=== PATIENT | male | born 1985 | race Caucasian/White ===

== ENCOUNTER 2016-05-02 13:02 | Emergency (ER) | payer MEDICAID ==
[~2016-05-02] VITALS: Ht 177.8 cm; Wt 85.0 kg
[~2016-05-02 13:02] MED LIST: PRED20 PO
[2016-05-02 13:04] VITALS: BP 127/76; PULSE 78; RESP 18; TEMP 98.2; O2SAT 99
[2016-05-02] MEDS ORDERED: PRED10 PO ×2 (13:13→13:24)
--- NOTE | 2016-05-02 13:23 | PD ---
HPI . needs prednisone refill Chief Complaint: Medication Refill Request Time Seen by Provider: 13:16 Travel History International Travel<30 days: No Contact w/Intl Traveler<30days: No Traveled to known affect area: No History of Present Illness HPI 30-year-old male with history of rheumatoid arthritis here requesting refill of prednisone. Patient says he usually gets it from the clinic, but has been unable to do so since he has not had the money to pay for his visit. He is requesting prednisone 10 mg twice a day. He has no other issues or concerns. PFSH Past Medical History Hx Anticoagulant Therapy: No Arthritis: Yes Autoimmune Disease: Yes (RA) Cardiovascular Problems: No Chemotherapy: No Cerebrovascular Accident: No Diabetes: No Respiratory: No Tetanus Vaccination: < 5 Years Influenza Vaccination: No Past Surgical History Hysterectomy: No Social History Alcohol Use: Yes (RARELY) Tobacco Use: Yes (1/2 ppd) Substance Use: No Allergies-Medications (Allergen,Severity, Reaction): Coded Allergies: No Known Allergies (Unverified , 05/02/16) Reported Meds & Prescriptions Reported Meds & Active Scripts Active Prednisone 10 Mg Tab 10 Mg PO BID Reported Prednisone 10 Mg Tab 10 Mg PO BID Review of Systems General / Constitutional: No: Fever Eyes: No: Visual changes HENT: No: Headaches Cardiovascular: No: Chest Pain or Discomfort Respiratory: No: Shortness of Breath Gastrointestinal: No: Abdominal Pain Genitourinary: No: Dysuria Musculoskeletal: No: Pain Skin: No Rash Neurologic: No: Weakness Psychiatric: No: Depression Endocrine: No: Polydipsia Hematologic/Lymphatic: No: Easy Bruising Physical Exam Narrative GENERAL: AAO x 3, no acute distress, Well-nourished, well-developed patient. SKIN: Warm and dry. No visible rashes or bruising. HEAD: Normocephalic and atraumatic. EYES: No scleral icterus. No injection or drainage. ENT: No nasal drainage noted. Mucous membranes pink. Airway patent. NECK: Supple, trachea midline. No JVD. CARDIOVASCULAR: Regular rate and rhythm without murmurs, gallops, or rubs. RESPIRATORY: Breath sounds equal bilaterally. No accessory muscle use. No rhonchi or rales. GASTROINTESTINAL: Abdomen soft, non-tender, nondistended. EXTREMITIES: No cyanosis or edema. BACK: Nontender without obvious deformity. No CVA tenderness. PSYCH: AAO x 3, normal affect. Data Data Last Documented VS Vital Signs Date Time Temp Pulse Resp B/P Pulse Ox O2 Delivery O2 Flow Rate FiO2 05/02/16 13:04 98.2 78 18 127/76 99 MDM Medical Decision Making Medical Screen Exam Complete: Yes Emergency Medical Condition: Yes Medical Record Reviewed: Yes Differential Diagnosis medication refill, RA, OA Narrative Course 30-year-old male with history of rheumatoid arthritis here requesting refill of prednisone. Patient says he usually gets it from the clinic, but has been unable to do so since he has not had the money to pay for his visit. He is requesting prednisone 10 mg twice a day. He has no other issues or concerns. Will provide refill of Prednisone. Advised to establish with primary care provider for labs and testing. Discussed long-term consequences of prednisone usage. Patient verbalized understanding of instructions, questions were answered, and thanked me for their care. I advised them if their condition worsens, please return to the nearest emergency room for further care. Diagnosis Primary Impression: Medication refill Patient Instructions: General Instructions Additional Instructions: Please return to emergency department if your symptoms return or worsen. Follow up with your primary care provider. Take medications as prescribed. Med/Other Pt SpecificInfo: Prescription(s) given Scripts Prednisone 10 Mg Tab10 Mg PO BID #14 TAB Ref 0 Prov:Rogelio Smith MD 05/02/16 Disposition: 01 DISCHARGE HOME Condition: Stable Sheila Pradhan May 02, 2016 13:23
[2016-05-25] MEDS ORDERED: PRED20 PO (08:42)
== END 2016-05-02 13:31 | disposition home or self-care (01) ==
LOC: NEPB 13:02
DX: M06.9 Rheumatoid arthritis, unspecified (principal); F17.210 Nicotine dependence, cigarettes, uncomplicated; Z76.0 Encounter for issue of repeat prescription
CPT/HCPCS: 99281

== ENCOUNTER 2016-05-22 20:47 | Emergency (ER) | payer MEDICAID ==
[~2016-05-22] VITALS: Ht 177.8 cm; Wt 80.0 kg
[~2016-05-22 20:47] MED LIST changes: +PRED10 PO; -PRED20 PO
[2016-05-22 20:48] VITALS: BP 133/83; PULSE 80; RESP 16; TEMP 98.6; O2SAT 97
[2016-05-22] MEDS ORDERED: PROPARACAINE HCL 0.5% OPHT SOLN 15 ML BTL RIGHT EYE ONE (21:45)
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
[2016-05-22] MEDS ORDERED: POLY10O RIGHT EYE ×2 (22:15→22:20)
[2016-05-22] MEDS ORDERED: HYDR-3533 PO ×2 (22:15→22:20)
[2016-05-25] MEDS ORDERED: PRED20 PO (08:42)
== END 2016-05-22 22:35 | disposition home or self-care (01) ==
LOC: NEPK 20:47
DX: S05.01XA Injury of conjunctiva and corneal abrasion without foreign body, right eye, initial encounter (principal); T15.00XA Foreign body in cornea, unspecified eye, initial encounter; F17.210 Nicotine dependence, cigarettes, uncomplicated
CPT/HCPCS: 65220

== ENCOUNTER 2016-07-23 17:36 | Emergency (ER) | payer MEDICAID ==
[~2016-07-23] VITALS: Ht 177.8 cm; Wt 80.0 kg
[~2016-07-23 17:36] MED LIST changes: +HYDR-3533 PO; +POLY10O RIGHT EYE; -PRED10 PO; +PRED20 PO
[2016-07-23 17:37] VITALS: BP 157/90; PULSE 92; RESP 20; TEMP 98.7; O2SAT 98
--- NOTE | 2016-07-23 18:14 | PD ---
HPI Chief Complaint: Lump, Cyst, Hernia Time Seen by Provider: 18:07 Travel History International Travel<30 days: No Contact w/Intl Traveler<30days: No Traveled to known affect area: No History of Present Illness HPI 31-year-old male presents to the emergency Department with complaint of a lump to his right lower neck/chest area that he noticed 4 days ago. He says the area is tender to touch. He does lift weights and was vomiting the other night due to over drinking alcohol and thinks that maybe it could be related to one of these events. He denies fever, vomiting. Has not taken any medications or tried any treatments alleviate symptoms. No known allergies. Has no other medical complaints. No other modifying factors or associated signs and symptoms. History Past Medical Histgory Hx Chemotherapy: No Social History Alcohol Use: Yes (RARELY) Tobacco Use: Yes (1/2 ppd) Allergies-Medications (Allergen,Severity, Reaction): Coded Allergies: No Known Allergies (Unverified , 05/25/16) Reported Meds & Prescriptions Reported Meds & Active Scripts Active Lortab (Hydrocodone-Acetaminophen) 5-325 Mg Tab 1 Tab PO Q6H PRN Polytrim Opth Drops (Polymyxin/Trimethoprim Sulfate) 10,000-0.1 Unit/Ml-% Soln 1 Drop RIGHT EYE Q6HR 7 Days Reported Prednisone 20 Mg Tab 20 Mg PO BID Review of Systems Except as stated in HPI: all other systems reviewed are Neg Physical Exam Narrative GENERAL: Well-nourished, well-developed male patient, in no acute distress SKIN: Warm and dry. Right upper chest/right lateral lower neck area with no palpable mass, lump; without erythema, edema; appears and feels the same on palpation to the left side. No lymphadenopathy. HEAD: Atraumatic. Normocephalic. EYES: Pupils equal and round. No scleral icterus. No injection or drainage. ENT: Mucosa pink and moist. Airway patent. NECK: Trachea midline. CARDIOVASCULAR: Regular rate. RESPIRATORY: No accessory muscle use. GASTROINTESTINAL: Flat. MUSCULOSKELETAL: No obvious deformities. No clubbing. No cyanosis. No edema. NEUROLOGICAL: Awake and alert. Oriented 3. No obvious cranial nerve deficits. Motor grossly within normal limits. Normal speech. PSYCHIATRIC: Appropriate mood and affect; insight and judgment normal. Data Data Last Documented VS Vital Signs Date Time Temp Pulse Resp B/P Pulse Ox O2 Delivery O2 Flow Rate FiO2 07/23/16 17:37 98.7 92 20 157/90 98 Room Air [facility] Medical Screen Exam Complete: Yes Emergency Medical Condition: No Differential Diagnosis Lump in neck, muscle strain, medical clearance Narrative Course 31-year-old male concerned of a lump on the right side of his neck/upper chest area. I am unable to palpate any type of lump or mass to the specified area. It appears and feels the same on palpation to the left side. I offered the patient a nonnarcotic for pain and he says is really not painful and declined at this time. Vital signs are stable and the patient is stable for outpatient follow-up and treatment. The patient has no urgent or emergent medical complaints. There is no emergent or urgent medical need at this time. I instructed the patient to follow up with their primary care provider. A medical screening exam was performed: At the time of evaluation the presenting medical condition was determined not to be of an emergent nature. The patient was given the option of receiving additional care, but declined. Patient was given options for additional community resources from which to obtain care. The Patient Has Been advised to seek medical attention for their presenting complaint. The patient has been advised to return to the ER at any time if an emergent condition develops. Primary Impression: Encounter for medical screening examination Condition: Stable Evelyne Quarles Jul 23, 2016 18:14
== END 2016-07-23 18:15 | disposition left against medical advice (07) ==
LOC: NEPK 17:36
DX: R22.2 Localized swelling, mass and lump, trunk (principal)
CPT/HCPCS: 99281